=== PATIENT | female | born 1945 ===

== ENCOUNTER 2019-12-27 07:43 | Inpatient (IN) | payer BC, OTHER ==
[2019-12-19 15:23] VITALS: BMI 37.0
[2019-12-27] MEDS ORDERED: BUPIVACAINE LIPOSOME/PF (EXPAREL) 266 MG/20 ML VIAL ONE (07:56)
[2019-12-27] MEDS ORDERED: LIDOCAINE 1% P/F 10 MG/ML VIAL ONE (07:56)
--- NOTE | 2019-12-27 07:59 | HP ---
Satellite [facility] - Chief Complaint Chief Complaint: right knee pain - Past Medical History Allergies/Adverse Reactions: Allergies Allergy/AdvReac Type Severity Reaction Status Date / Time aspirin Allergy Difficulty Verified 12/19/19 15:12 Breathing Penicillins Allergy Difficulty Verified 12/19/19 15:12 Breathing tramadol Allergy Difficulty Verified 12/19/19 15:12 Breathing - Current Medications Current Medications: Home Medications Medication Instructions Recorded Levothyroxine [Synthroid -] 75 mcg PO DAILY 12/19/19 Multivitamin [One-Daily 1 each PO DAILY 12/19/19 Multi-Vitamin] Valsartan [Diovan] 160 mg PO DAILY 12/19/19 Satellite Physical Exam - Physical Examination General Appearance: Well Nourished, Well Developed, Alert & Oriented x3 ENT: Clear Lung: Normal air movement Extremities: Other (right knee- + swelling, + ttp, decr rom ,nvi, xrays show grade 4 tricompartmental djd) Neurological: Intact, Alert, Oriented Satellite Impression/Plan - Impression/Plan Impression: right knee djd Operative Procedure: right pedro tkr Date to be Performed: 12/27/19
[2019-12-27] MEDS ORDERED: VANCOMYCIN 1,000 MG VIAL (RESTRICTED TO ID ONLY) ONE (08:00)
[2019-12-27] MEDS ORDERED: TRANEXAMIC ACID 1000 MG/10 ML VIAL IVPUSH ONE (08:10)
[2019-12-27] MEDS ORDERED: ceFAZolin SODIUM 1 GM VIAL ONE (08:35)
[2019-12-27] MEDS ORDERED: MAG HYDROX/AL HYDROX/SIMETH 30 ML UNIT-DOSE CUP PO PRN (09:41)
[2019-12-27] MEDS ORDERED: MAGNESIUM HYDROX 2400MG/30ML ORAL SUSPENSION 30 ML CUP PO PRN (09:41)
[2019-12-27] MEDS ORDERED: ONDANSETRON 4 MG/2 ML VIAL IVPUSH PRN ×2 (09:41→12:04)
[2019-12-27] MEDS ORDERED: LACTATED RINGERS SOLUTION 1,000 ML IV SCH (09:45)
[2019-12-27] MEDS ORDERED: ePHEDrine SULFATE 50 MG/1 ML AMPULE ONE (09:53)
[2019-12-27] MEDS ORDERED: CEFAZOLIN 3 GM in DEXTROSE 5%-WATER - 100 ML IVPB ONE (10:00)
[2019-12-27] MEDS ORDERED: PROPOFOL 20 ML ONE (10:51)
[2019-12-27] MEDS ORDERED: VANCOMYCIN 1,000 MG VIAL (RESTRICTED TO ID ONLY) IVPB ONE (11:20)
--- NOTE | 2019-12-27 11:49 | OP ---
Operative Note - Note: Operative Date: 12/27/19 (jad) Pre-Operative Diagnosis: right knee djd Operation: right pedro tkr Post-Operative Diagnosis: Same as Pre-op Surgeon: Geoff Cha Soa Integration Architect: Edward Benites Anesthesia: Spinal, Local Specimens Removed: bone fragments Estimated Blood Loss (mls): 200
[2019-12-27] MEDS ORDERED: HYDROmorphone HCL CARPU-JECT 1 MG/1 ML DISP.SYRIN IVPUSH PRN (12:04)
[2019-12-27] MEDS ORDERED: HYDROmorphone HCl 2 MG/ML VIAL ONE (12:42)
[2019-12-27] MEDS ORDERED: oxyCODONE HCL 5 MG TABLET PO PRN ×2 (14:44)
[2019-12-27] MEDS: ACETAMINOPHEN 325 MG TABLET (FP) PO SCH (18:05)
[2019-12-27] MEDS: CEFAZOLIN 3 GM in DEXTROSE 5%-WATER - 100 ML IVPB SCH (18:05)
[2019-12-27] MEDS: oxyCODONE HCL 10 MG SUSTAINED ACTING TABLET PO SCH (22:24)
[2019-12-27] MEDS: SENNOSIDES/DOCUSATE COMBO (SENNA PLUS) TABLET (UD) PO SCH (22:24)
--- NOTE | 2019-12-27 22:57 | OP ---
DATE OF OPERATION: 12/27/2019 PREOPERATIVE DIAGNOSIS: Degenerative joint disease, right knee. POSTOPERATIVE DIAGNOSIS: Degenerative joint disease, right knee. PROCEDURE: Right total knee replacement with robotic-assisted navigation (Makoplasty). SURGICAL ATTENDING: Geoff Cha MD. TRIM MOUNTER: PARK Eric. ANESTHESIA: Regional and spinal. CLOSURE: A cemented Triathlon knee system with a 5 femur, 4 tibia, 11 polyethylene, 32 patella, number 1 Vicryl fascia, 0 and 2-0 subcutaneous, 3-0 Monocryl subcuticular with skin glue for skin, 4-0 undyed Vicryl for pin site. ESTIMATED BLOOD LOSS: Less than 100 mL. COMPLICATIONS: None. CONDITION: To recovery room in stable condition. DESCRIPTION OF OPERATIVE PROCEDURE: Patient was taken to the operating room on December 27, 2019. Regional and general anesthesia was administered by the anesthesiologist. IV Kefzol and TXA were administered by the anesthesiologist. Well-padded pneumatic tourniquet was placed on the proximal thigh. The right lower extremity was prepped and draped in the usual sterile fashion. The leg was exsanguinated with an Esmarch bandage, and tourniquet was inflated to 275 mmHg. A 12 to 15-cm longitudinal midline incision was incised while centered over the patella. The dissection was carried down to the level of the extensor mechanism with sufficient flaps made to adequately perform the procedure. A medial parapatellar arthrotomy was then performed. We made a cuff of tissue on the patella for later closure. The patella was inverted, the knee was flexed up. The fat pad was excised. The subperiosteal dissection was on the anteromedial proximal tibia around towards the direction of the MCL. The ACL and the PCL were transected and debrided. The meniscal remnants of the medial and lateral meniscus were debrided and removed. This allowed the knee to be able to "be brought forward." The checkpoints were malleted into the tibia and into the femur. Two threaded pins were drilled anteroposteriorly proximal to the knee through the previous incision, through the anterior cortex, then just engaging the posterior cortex. To these pins was assembled the femoral navigation array. One handbreadth below the tibial tubercle, 2 stab incisions were used to drill 2 threaded pins in parallel fashion into the tibia, again through the anterior cortex and just engaging the posterior cortex. To these pins was fastened the tibial arrays. The knee was then registered with the navigation device with center of rotation of the hip, medial and lateral malleoli, both checkpoints, and multiple points on both the femur and the tibia to ensure excellent registration. The navigation device was directed off the "top of the bubbles" on both the femur and the tibia. The navigation passed within less than 0.5 mm to plan. The knee was then thoroughly inspected to remove all osteophytes both medially, laterally, and on the femur and the tibia, and whatever osteophytes were available for dissection. The knee was then taken to extension and to flexion, and stressed in both varus and valgus to assess flexion gaps. The virtual position of the components on the navigation device were then manipulated to optimize the position and to ensure equal gaps in both flexion and extension, and both medially and laterally. The robot was then brought into the field and was registered. The cuts were then made both on the femur and on the tibia as to plan. All osteophytes posteriorly were then removed as well. The gaps were then measured again in flexion and extension to be equal in both flexion and extension and medial and laterally. The femoral notch was then made, as we were doing a posterior stabilizing component, with the appropriate sized box. Trial reduction of the femur achieved excellent aork-es-hzgi fit. A tibial baseplate of appropriate polyethylene thickness was "floated in the knee." It was ensured to be in the excellent position by navigation devices and was pinned in place. The knee was taken through a range of motion, and found to have excellent stability throughout flexion and extension. The patella was calibrated for thickness and osteotomized down to the appropriate level. The appropriate lollipop was used to drill the lug holes in the patella and the trial button was applied. The knee was taken through a range of motion and found to have excellent tracking of the patella, and patella from full extension to full flexion. Trial components were removed, the keel was punched and drilled, and a sclerotic bone on the tibia was drilled to help with cement interdigitation. The knee was thoroughly irrigated with the pulse antibiotic mold yard worker. The real components were then cemented in using monitored arrangement cement techniques with antibiotic cement, and pressurization and extension. After the cement was hardened, the knee was thoroughly inspected to remove any extra cement. The real polyethylene component was then clipped into place. Range of motion, stability, and tracking were as described earlier. The checkpoints and the pins were removed. The knee was thoroughly irrigated with antibiotic irrigation. Vancomycin powder was placed into the knee for antibiotic prophylaxis. The medial parapatellar arthrotomy was then closed using number 1 Vicryl interrupted suture. After closure of the deep layer, the knee was taken through a range of motion, and found to have excellent stability of the patella with no dislocation and no undue tension on the repair. The subcutaneous was pulse antibiotic irrigated, and was then closed with 2-0 Vicryl, 3-0 Monocryl subcuticular with the skin glue for the skin. The distal tibial pin site was irrigated thoroughly as well and then closed with 4-0 undyed Vicryl. A sterile Aquacel dressing was applied, followed by a Ross dressing. Tourniquet was deflated. Total tourniquet time was approximately 75 minutes. No complications. Patient was awakened from anesthesia and transferred to recovery room in stable condition. Postoperative x-rays revealed excellent position of the components. Reilly [id number]
[2019-12-28] MEDS: ACETAMINOPHEN 325 MG TABLET (FP) PO SCH ×4 (00:15→18:20)
[2019-12-28] MEDS: CEFAZOLIN 3 GM in DEXTROSE 5%-WATER - 100 ML IVPB SCH (02:45)
[2019-12-28] MEDS: LEVOTHYROXINE NA 75 MCG TABLET (FP) PO SCH (06:09)
[2019-12-28 08:45] LABS: HEMATOCRIT 37.7 % (32.4-45.2); HEMOGLOBIN 12.4 GM/dl (10.7-15.3); MCH 26.6 pg (25.7-33.7); MCHC 32.8 g/dl (32.0-36.0); MEAN CELL VOLUME 81.2 fl (80-96); MEAN PLT VOLUME 8.7 fl (7.5-11.1); PLATELET COUNT 217 K/MM3 (134-434); RBC 4.65 M/mm3 (3.60-5.2); WHITE BLOOD COUNT 11.2 K/mm3 (4.0-10.8)
[2019-12-28] MEDS: SENNOSIDES/DOCUSATE COMBO (SENNA PLUS) TABLET (UD) PO SCH ×3 (09:15→21:49)
[2019-12-28] MEDS: VALSARTAN 160 MG TABLET (UD) PO SCH ×2 (09:15→09:17)
[2019-12-28] MEDS: PANTOPRAZOLE 40 MG TABLET PO SCH ×2 (09:16→09:18)
[2019-12-28] MEDS: MULTIVITAMINS (DAILY MVI) TABLET (FP) PO SCH ×2 (09:16→09:18)
[2019-12-28] MEDS: LACTATED RINGERS SOLUTION 1,000 ML IV SCH ×2 (09:16→12:26)
[2019-12-28] MEDS: ENOXAPARIN NA (PORCINE) 40 MG/0.4 ML DISP.SYRIN SQ SCH (09:17)
--- NOTE | 2019-12-28 09:27 | PN ---
Progress Note (short form) - Note Progress Note: Ortho Pt seen and examined s/p right pedro tkr pod #1 Selected Entries 12/28/19 09:12 Temperature 98.4 F Pulse Rate 59 L Respiratory 17 Rate Blood Pressure 144/60 Laboratory Tests 12/28/19 08:13 WBC 11.2 H Hgb 12.4 Hct 37.7 Plt Count 217 dressing c/d/i, calf soft, nt rom 0-30, nvi a/p PT dvt ppx pain control d/c home tomorrow if stable
[2019-12-28] MEDS: oxyCODONE HCL 10 MG SUSTAINED ACTING TABLET PO SCH ×2 (09:53→21:49)
--- NOTE | 2019-12-28 13:36 | PN ---
Progress Note (short form) - Note Progress Note: ANESTHESIA POSTOP 75 YO FEMALE POD#1 S/P TKR, SPINAL AND PNB Patient sitting in chair. Pain adequately controlled. No complaints. Tolerating PO VSS, Afebrile Continue current care. Encouraged IS and active participation in PT
--- NOTE | 2019-12-28 14:33 | PATH ---
Surgical Pathology Report Patient Name: LESTER WALKER Med. Rec. #: [id number] /Age/Gender: 1945 (Age: 74) / F Account: [id number] Location: [facility] Taken: 12/27/2019 Received: 12/26/2019 Reported: 12/28/2019 Physicians: Geoff Cha M.D. Specimen(s) Received RIGHT KNEE BONES Clinical History Right knee osteoarthritis Final Diagnosis KNEE BONES, RIGHT, TOTAL KNEE REPLACEMENT: DEGENERATIVE JOINT DISEASE. Electronically Signed Lila Lombardo M.D. Gross Description Received in formalin labeled "right knee bones," is a 10.5 x 9.5 x 1.9 cm aggregate of multiple portions of bone and soft tissue. The tibial plateau measures 7.5 x 5.4 x 1.4 cm. There is a 0.5 cm greatest dimension area of eburnation present. The remaining articular surfaces are huerta-yellow and diffusely granular. The underlying trabecular bone is yellow and hard. Willow Machine Operator sections are submitted in one cassette, following decalcification. /12/27/[address] [facility]
[2019-12-29] MEDS: ACETAMINOPHEN 325 MG TABLET (FP) PO SCH ×3 (06:27→11:45)
[2019-12-29] MEDS: LEVOTHYROXINE NA 75 MCG TABLET (FP) PO SCH (06:27)
[2019-12-29 06:32] VITALS: TEMP 98.8
[2019-12-29 07:14] LABS: HEMOGLOBIN 11.5 GM/dl (10.7-15.3); MEAN PLT VOLUME 8.5 fl (7.5-11.1)
[2019-12-29 07:21] LABS: HEMATOCRIT 33.6 % (32.4-45.2); MCH 27.6 pg (25.7-33.7); MCHC 34.1 g/dl (32.0-36.0); PLATELET COUNT 200 K/MM3 (134-434); RBC 4.15 M/mm3 (3.60-5.2); RDW 13.1 % (11.6-15.6); WHITE BLOOD COUNT 8.8 K/mm3 (4.0-10.8)
--- NOTE | 2019-12-29 08:09 | PN ---
Progress Note (short form) - Note Progress Note: Ortho Pt seen and examined s/p right pedro tkr pod #2 Selected Entries 12/29/19 06:28 Temperature 98.8 F Pulse Rate 91 H Respiratory 19 Rate Blood Pressure 131/61 Laboratory Tests 12/29/19 07:05 WBC 8.8 Hgb 11.5 Hct 33.6 Plt Count 200 dressing c/d/i, calf soft, nt rom 0-30, nvi a/p PT dvt ppx pain control d/c home today f/u in 1 week
--- NOTE | 2019-12-29 08:09 | DS ---
Physical Examination Vital Signs: Vital Signs Temperature 98.8 F 12/29/19 06:28 Pulse Rate 91 H 12/29/19 06:28 Respiratory Rate 19 12/29/19 06:28 Blood Pressure 131/61 12/29/19 06:28 O2 Sat by Pulse Oximetry (%) 98 12/29/19 06:28 Labs: CBC, BMP 12/29/19 07:05 Discharge Summary Problems reviewed: Yes Reason For Visit: OSTEOARTHRITIS Procedures: Principal: right tkr Hospital Course: admitted for elective right pedro tkr, post-op per protocol, stable for d/c Condition: Good - Instructions Diet, Activity, Other Instructions: Post-op Instructions-Total Knee Replacement Call the office for a follow-up appointment in 1 week - [phone] Aspirin 325mg daily for 6 weeks. Pain medication was sent into your pharmacy. Apply Graduated Compression Stockings (TEDs) to both lower extremities- remove daily for hygiene ONLY Apply Sequential Compression Device (SCDs) to both Lower extremities remove for PT and hygiene ONLY Apply cold packs to affected area for 15 minutes every 2 hours. Physical Therapist will come to your home for the first 5 days. You will be set up with outpatient PT at your first post-operative visit. Patient may ambulate as tolerated-encourage self care (at least every 2-3 hours while awake) with walker or cane Maintain Aquacel (waterproof) dressing to operative wound (will be removed by surgeon at first office visit) Shower with Aquacel dressing in place-if Aquacel integrity compromised, remove and apply dry sterile dressing and notify Orthopedist. DO NOT SHOWER unless Orthopedists approves without Aquacel dressing CONTACT THE OFFICE FOR ANY CHANGE IN YOUR CONDITION (for example-fever greater than 102 degrees, excessive bleeding from operative site, purulent drainage, severe swelling or pain) GO TO THE EMERGENCY ROOM IF THERE IS A MEDICAL EMERGENCY Knee Precautions: * Keep a rolled towel under affected heel while in bed or chair (to keep knee in extension) * Keep affected leg elevated except during mealtimes * DO NOT PLACE PILLOW UNDER AFFECTED KNEE * If you have any questions, please do not hesitate to call the office - [phone]. Referrals: Geoff Cha MD [Staff Physician] - Disposition: VNS/HOME HEALTH CARE - Home Medications Comprehensive Discharge Medication List: Ambulatory Orders Levothyroxine [Synthroid -] 75 mcg PO DAILY 12/19/19 Multivitamin [One-Daily Multi-Vitamin] 1 each PO DAILY 12/19/19 Valsartan [Diovan] 160 mg PO DAILY 12/19/19 Enoxaparin [Lovenox -] 40 mg SQ DAILY #14 disp.syrin 12/27/19 Oxycodone HCl/Acetaminophen [Percocet 5-325 mg Tablet -] 1 - 2 tab PO Q6H #50 tab MDD 8 12/27/19
[2019-12-29] MEDS: ENOXAPARIN NA (PORCINE) 40 MG/0.4 ML DISP.SYRIN SQ SCH (08:53)
[2019-12-29 09:16] VITALS: BP 146/61; PULSE 72
[2019-12-29] MEDS: oxyCODONE HCL 10 MG SUSTAINED ACTING TABLET PO SCH (09:16)
[2019-12-29] MEDS: SENNOSIDES/DOCUSATE COMBO (SENNA PLUS) TABLET (UD) PO SCH (09:16)
[2019-12-29] MEDS: VALSARTAN 160 MG TABLET (UD) PO SCH (09:16)
[2019-12-29] MEDS: PANTOPRAZOLE 40 MG TABLET PO SCH (09:16)
[2019-12-29] MEDS: MULTIVITAMINS (DAILY MVI) TABLET (FP) PO SCH (09:16)
[2019-12-29] MEDS: LACTATED RINGERS SOLUTION 1,000 ML IV SCH (12:00)
== END 2019-12-29 14:10 | disposition home health service (06) | DRG 470 ==
LOC: FM/S 07:43
PROVIDERS: ADMIT Orthopaedic Surgery; ATTEND Orthopaedic Surgery
PROC: 8E0Y0CZ Robotic Assisted Procedure of Lower Extremity, Open Approach (ICD-10-PCS; 2019-12-27)
PROC: 0SRC0J9 Replacement of Right Knee Joint with Synthetic Substitute, Cemented, Open Approach (ICD-10-PCS; principal; 2019-12-27 10:04)
DX: M17.11 Unilateral primary osteoarthritis, right knee (principal); M25.561 Pain in right knee
CPT/HCPCS: 36415; 73560-TC-RT-FY; 82962; 85027; 88304-TC; 88311-TC; 94760; 97010-GP; 97116-GP; 97161-GP